=== PATIENT | female | born 1960 | race Caucasian/White ===

== ENCOUNTER 2019-01-20 15:02 | Emergency (ER) | payer OTHER ==
[~2019-01-20] VITALS: Ht 162.6 cm; Wt 79.4 kg
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
--- NOTE | 2019-01-20 16:06 | RAD ---
CT head and cervical spine without contrast History: [facility] Technique: Noncontrast CT imaging was performed of the head and cervical spine. Multiplanar reconstruction images are submitted. Exposure: One or more of the following individualized dose reduction techniques were utilized for this examination: 1. Automated exposure control 2. Adjustment of the mA and/or kV according to patient size 3. Use of iterative reconstruction technique. Head CT Comparison: None Findings: No acute extra-axial or parenchymal hemorrhage is identified. There is no significant intra-axial mass effect, midline shift, or extra-axial fluid collection. The villatoro-white differentiation of the major vascular territories is preserved. The ventricles, sulci, and cisterns are within normal limits in size and configuration. The mastoid air cells and the visualized paranasal sinuses are aerated. There is no significant focal calvarial abnormality. Impression: 1. No acute intracranial abnormality is identified. Cervical spine CT Comparison: None Findings: No acute cervical spine fracture is identified. Vertebral body stature and AP alignment are within normal limits. Atlanto-axial distance is within normal limits. There is appropriate alignment of lateral masses of C1 relative to C2. Occipital condylar-C1 relationship is maintained. There is more advanced degenerative disc disease C5-6, minimally at C4-5. There is spondylosis greatest C5-6. There is likely central canal stenosis C5-6 about 9 mm, to lesser degree at C4-C5, possible borderline narrowing at C6-7. There is multilevel facet degenerative change which contributes the neural foramina compromise, more significant narrowing on the left at C2-C3, minimally on left at C3-4. There is uncovertebral degenerative change which also contributes to neural foramina compromise, more significant narrowing on the left at C4-5 and on the right at C5-6, to lesser degree on right at C4-C5. Impression: 1. No acute cervical spine fracture is identified. 2. There is degenerative disc disease and spondylosis greatest at C5-6 and to lesser degree C4-5 at which there is mild spinal stenosis. 3. Facet and uncovertebral degenerative change contributes to multilevel neural foramina compromise. Electronically signed by: Kiet Casper MD (01/20/2019 4:03 PM) [facility] [place]
[2019-01-20] MEDS ORDERED: HYDR-3164 PO (16:26)
[2019-01-20] MEDS ORDERED: CYCL10TA2 PO (16:26)
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
[2019-01-20] MEDS ORDERED: HYDROcodone/APAP 5/325MG 1 TAB TABLET ONE (16:28)
[2019-01-20] MEDS ORDERED: HYDROcodone/APAP 5/325MG 1 TAB TABLET PO ONE (16:30)
[2019-01-20 16:35] VITALS: BP 141/82
== END 2019-01-20 16:37 | disposition home or self-care (01) ==
LOC: ER 15:02
DX: S16.1XXA Strain of muscle, fascia and tendon at neck level, initial encounter (principal); S20.212A Contusion of left front wall of thorax, initial encounter; S46.812A Strain of other muscles, fascia and tendons at shoulder and upper arm level, left arm, initial encounter; E10.9 Type 1 diabetes mellitus without complications; V47.5XXA Car driver injured in collision with fixed or stationary object in traffic accident, initial encounter; Y93.89 Activity, other specified; Y92.410 Unspecified street and highway as the place of occurrence of the external cause; Y99.8 Other external cause status
CPT/HCPCS: 70450; 71045; 72125; 73080; 82962; 99284-25; 99285-25